=== PATIENT | female | born 1975 | race Caucasian/White ===

== ENCOUNTER → 2017-06-18 | Outpatient (CLI) | payer BC ==
[~2017-06-18] MED LIST: ALPR0.5T9 PO; IBUP-1050 PO; LXP10 PO; MELA1TAB4 PO; TPRSR/25 PO
--- NOTE | 2017-06-21 12:30 | MAMMOGRAPHY REPORT ---
BILATERAL DIGITAL SCREENING MAMMOGRAM TOMOSYNTHESIS WITH CAD: 06/18/2017 CLINICAL HISTORY: Routine screening. Patient has no complaints. TECHNIQUE: Breast tomosynthesis in addition to standard 2D mammography was performed. Current study was also evaluated with a Computer Aided Detection (CAD) system. COMPARISON: Comparison is made to exams dated: 02/06/2016 mammogram, 01/02/2015 mammogram, 01/12/2014 l ocalization, 01/12/2014 specimen, 11/28/2013 ultrasound biopsy, and 11/02/2013 mammogram - [facility]. BREAST COMPOSITION: The tissue of both breasts is heterogeneously dense, which may obscure small mas ses. FINDINGS: No suspicious masses, calcifications, or areas of architectural distortion are noted in ei ther breast. There has been no significant interval change compared to prior exams. There is archite ctural distortion in the left upper outer quadrant at the site of prior surgical excision. A linear scar marker denotes a scar on the left upper outer breast. IMPRESSION: ACR BI-RADS CATEGORY 2: BENIGN There is no mammographic evidence of malignancy. A 1 year screening mammogram is recommended. The pa tient will receive written notification of the results. Approximately 10% of breast cancers are not detected with mammography. A negative mammographic report should not delay biopsy if a clinically suggestive mass is present. Laura Lozano M.D. /:06/18/2017 15:31:58 Zoning Technician: Tanya VELA)(Elina), [facility] letter sent: Normal 1/2 BI-RADS Code: ACR BI-RADS Category 2: Benign
== END | disposition home or self-care (01) ==
LOC: C.MAMM 10:37
PROVIDERS: ATTEND Obstetrics & Gynecology
DX: Z12.31 Encounter for screening mammogram for malignant neoplasm of breast (principal)

== ENCOUNTER → 2017-07-26 | Outpatient (CLI) | payer BC | END | disposition home or self-care (01) | LOC: C.PAPS 14:24 | PROVIDERS: ATTEND Obstetrics & Gynecology | DX: Z01.419 Encounter for gynecological examination (general) (routine) without abnormal findings (principal) ==

== ENCOUNTER → 2017-07-26 | Outpatient (CLI) | payer BC ==
[2017-07-26 14:52] LABS: URINE APPEARANCE CLEAR (CLEAR); URINE BILIRUBIN NEG (NEG); URINE COLOR YELLOW; URINE NITRITE NEG (NEG); URINE PH 6.5 (4.5-7.5); URINE SPECIFIC GRAVITY 1.011 (1.000-1.030); UROBILINOGEN NEG (NEG)
[2017-07-26 15:08] LABS: MANUAL MICROSCOPIC REQUIRED? NO; REVIEW REQ? NO
== END | disposition home or self-care (01) ==
LOC: C.LABSPEC 13:37
PROVIDERS: ATTEND Obstetrics & Gynecology
DX: R30.0 Dysuria (principal)

== ENCOUNTER 2019-06-19 08:38 | Inpatient (IN) ==
--- NOTE | 2019-06-14 14:23 | Anesthesiology Consultation ---
Date of Service June 14, 2019 Assessment & Plan (1) Encounter for pre-operative examination: History of Von Willebrand's disease: discovered during incidental workup 2017 22 abnormal bruising. Patient follows with hematology (Dr. Mcclendon). Per Vickie at surgeon's office, they will be coordinating with hematology if preop DDAVP testing/treatment needed. Chart Review Chart Review: Acceptable Risk for Surgery (pending BMP AM DOS (surgeon- ordered/not done with preop testing)) and Patient NOT seen in Pre Admission Testing History Surgery Operation Date: 06/19/19 10:20 Proposed Procedures p Laparoscopic Incisional Hernia Repair - Stan Coleman MD, FACS Height/Weight Height: 5 ft 1 in Weight: 58.06 kg Allergies Allergy/AdvReac Type Severity Reaction Status Date / Time chlorthalidone AdvReac Unknown HYPOKALEMIA Verified 06/13/19 15:06 Medications Home Medications Medication Instructions Recorded Confirmed Last Taken ibuprofen 400 - 600 mg PO QID PRN 09/20/18 06/13/19 10/09/18 08:00 metoprolol succinate 50 mg PO QPM 09/20/18 06/13/19 10/09/18 22:00 sertraline [Zoloft] 100 mg PO HS 09/20/18 06/13/19 10/09/18 22:00 trazodone 25 mg PO HS PRN 09/20/18 06/13/19 10/09/18 22:00 alprazolam [Xanax] 0.25 mg PO DAILY PRN 06/13/19 06/13/19 Unknown Past Medical History Medical History Anxiety Hx of irritable bowel syndrome Hx of thyroid nodule UNDER SURVEILLANCE Hypertension Kidney stones Valvular disease MILD AI Von Willebrand disease DIAGNOSED ~03/2018 (DISCOVERED INCIDENTALLY 2/2 WORKUP FOR ABNORMAL BRUISING) Past Family History Family History Grandmother (Paternal) Family history of diabetes mellitus Grandmother (Maternal) Family history of diabetes mellitus Past Surgical History Surgical History History of colonoscopy History of cystoscopy WITH STENT History of dilatation and curettage History of herniorrhaphy History of intraocular lens implant History of tonsillectomy History of umbilical hernia repair Hx of breast lump removal LEFT Hx of laparoscopy X 2 Nausea and vomiting after administration of anesthetic agent Status post laparoscopic hysterectomy with open ventral hernia repair: 10/10/18: Grade view 2, MAC#3, ETT 7.5 at [facility] Social History Smoking Status: Current every day smoker tobacco type: cigarettes Smoking cigarettes per day: 5 per day Do You Dip or Chew Tobacco: No Hx Alcohol Use: Yes Alcohol type: beer alcohol intake frequency: a few times a week Hx Substance Use: No substance use type: does not use Testing Laboratory Results 06/14/19 WBC 8.16 H/H 13.9/41.3 PLATELETS 364 Echocardiogram Date: 07/04/18 LVEF 65%. No RWMA. Mild AI.
[~2019-06-19 08:38] MED LIST changes: -ALPR0.5T9 PO; +CEFAZOLIN 2000MG 2,000 MG/15 ML SYR IV SCH; +DESMOPRESSIN ACETATE 17 MCG in SODIUM CHLORIDE 0.9% 50 ML IV SCH; -IBUP-1050 PO; +LACTATED RINGER'S 1,000 ML IV SCH; -LXP10 PO; -MELA1TAB4 PO; -TPRSR/25 PO
[2019-06-19] MEDS ORDERED: SCOPOLAMINE 1.5 MG TDSY ONE (09:31)
[2019-06-19] MEDS ORDERED: ePHEDrine sulfate 50 MG/ML AMP IV PRN (09:34)
[2019-06-19] MEDS ORDERED: ONDANSETRON INJ 2 MG/ML 2 ML VIAL IV PRN ×2 (09:34→13:30)
[2019-06-19] MEDS ORDERED: ATROPINE SULFATE 0.1 MG/ML 10ML SYR IV PRN (09:34)
[2019-06-19] MEDS ORDERED: SCOPOLAMINE 1.5 MG TDSY TD ONE (09:34)
[2019-06-19] MEDS ORDERED: SUCCINYLCHOLINE CHLORIDE 20 MG/ML 10 ML VIAL ONE (09:46)
[2019-06-19] MEDS ORDERED: PROPOFOL IV EMULSION 10 MG/ML 20 ML VIAL IV ONE (09:46)
[2019-06-19] MEDS ORDERED: MIDAZOLAM HCL 1 MG/ML 2ML VIAL ONE (09:46)
[2019-06-19] MEDS ORDERED: fentaNYL citrate 100 MCG/2 ML VIAL ONE ×3 (09:46→11:42)
[2019-06-19] MEDS ORDERED: GLYCOPYRROLATE 0.2 MG/ML VIAL ONE (09:46)
[2019-06-19] MEDS ORDERED: ONDANSETRON INJ 2 MG/ML 2 ML VIAL ONE (09:46)
[2019-06-19] MEDS ORDERED: LIDOCAINE HCL 2% 2 ML VIAL/AMP(20MG/ML) INFIL ONE (09:46)
[2019-06-19] MEDS ORDERED: DEXAMETHASONE SOD INJ 4 MG/ML VIAL ONE (09:46)
[2019-06-19] MEDS ORDERED: PHENYLEPHRINE HCL 10 MG/ML VIAL ONE (09:46)
[2019-06-19] MEDS ORDERED: NEOSTIGMINE METHYLSULFATE 5 MG/5 ML SYR ONE (09:46)
[2019-06-19] MEDS ORDERED: ePHEDrine sulfate 50 MG/ML AMP ONE (09:46)
[2019-06-19] MEDS ORDERED: BUPIVACAINE 0.5 % 5 MG/1 ML MPF 30ML VIAL ONE (10:23)
--- NOTE | 2019-06-19 10:28 | History & Physical Bridge Note ---
Date of Service June 19, 2019 History & Physical Bridge Note I have examined the patient, reviewed the History & Physical and in the interval since the performance of the History & Physical I have noted the following changes of clinical significance: no changes noted
[2019-06-19] MEDS ORDERED: ePHEDrine sulfate 50 MG/ML SYR ONE (11:09)
[2019-06-19] MEDS ORDERED: PHENYLEPHRINE 100MCG/ML 5ML SYR ONE (11:09)
--- NOTE | 2019-06-19 11:28 | Operative Report ---
Post Operative Report Pre & Post Diagnosis Operation Date: 06/19/19 10:20 Pre-Op Diagnosis: Incisional Hernia; Von Willebrand Disease Post-Op Diagnosis: Incisional Hernia; Von Willebrand Disease Procedure Operation Date: 06/19/19 10:20 Actual Procedures p Laparoscopic Incisional Hernia Repair(Not Applicable) - Stan Coleman MD, FACS Surgeon Stan Coleman MD, FACS Main Line Station Engineer Elvin Jovel Estimated Blood Loss 5 Findings Consistent with Post-Op Diagnosis Specimens none Description of Procedure see dictation I attest to the content of the Intraoperative Record and any orders documented therein. Any exceptions are noted below.
[2019-06-19] MEDS ORDERED: ACETAMINOPHEN 1,000 MG/100 ML VIAL IV ONE (11:33)
[2019-06-19] MEDS ORDERED: ACETAMINOPHEN 1000 MG/100 ML IV IV ONE (11:49)
[2019-06-19] MEDS: fentaNYL citrate 100 MCG/2 ML VIAL IV PRN ×10 (11:56→12:48)
--- NOTE | 2019-06-19 11:57 | Operative Report ---
DATE OF OPERATION: 06/19/2019 NAME OF OPERATION: Laparoscopic incisional and ventral hernia repairs. FINDINGS: The patient had 2 defects close together over approximately 5 cm and we used a 15-cm piece of Surgimesh to repair the hernias. STAFF SURGEON: Stan Coleman MD COMMUNITY SUPPORT WORKER: Everett Jovel PA-C ANESTHESIA: General. DESCRIPTION OF PROCEDURE: The patient was brought into the operating room and placed on the operating table in supine position. Her abdomen was prepped and draped in usual fashion. Pneumatic stockings, orogastric tube were placed. My guest services assistant helped with prepping, draping, repair of the hernias, and closure of the wounds. Initially, incision was made in the left upper quadrant using 0.5% plain Marcaine to anesthetize all incisions. Incision was made down to the fascia placing a Veress needle producing pneumoperitoneum, placing an 11-mm port. On visualization, the patient did have omentum and preperitoneal adipose tissue within the 2 defects. Two deep 5-mm ports were placed on the left side and also on the right side. The tissue was reduced from the hernia sacs and then it was apparent that we would need a 15-cm piece of Surgimesh to get a good overlap. The mesh was placed into the abdomen. The polypropylene was toward the fascia, the silicone toward the bowel. It was brought up through the defect using the Prolene suture. It was then tacked in 2 rows, an outer and an inner row of absorbable tacks with good placement. I did mobilize the adipose tissue away from the fascia inferiorly and superiorly prior to placing the mesh. The pneumoperitoneum was reduced. All ports were removed. The fascia in the left upper quadrant closed using interrupted 0 Vicryl suture, skin reapproximated using subcuticular 4-0 Monocryl, Dermabond used for the 5-mm sites, and Steri-Strips for the left upper quadrant site, and 5-0 Prolene for the midline stab incision. I attest to the content of the Intraoperative Record and any orders documented therein. Any exception s are noted below.
--- NOTE | 2019-06-19 12:59 | Anesthesiology Progress Note ---
Date of Service June 19, 2019 Anesthesia Post Procedure Vital Signs Vital Signs: Temp Pulse Pulse Resp BP BP Pulse Ox 06/19/19 12:55 74 16 114/83 99 06/19/19 12:45 79 14 136/91 99 06/19/19 12:35 97.9 F 65 13 125/94 97 06/19/19 12:25 68 13 126/91 98 06/19/19 12:15 76 15 124/97 98 06/19/19 12:05 68 18 133/96 99 06/19/19 11:55 65 18 145/101 H 100 06/19/19 11:47 96.8 F L 73 18 130/95 100 06/19/19 09:05 98.1 F 68 18 154/100 H 98 Pain Intensity Abdomen: Pain Intensity: 8 Transfer of Care Handoff Completed per policy Notes Mental Status: alert / awake / arousable and participated in evaluation Patient Amnestic to Procedure: Yes Nausea / Vomiting: adequately controlled Pain: adequately controlled Airway Patency, RR, SpO2: stable & adequate BP & HR: stable & adequate Hydration State: stable & adequate Anesthetic Complications: no major complications apparent and Pt Satisfied with anesthetic care
[2019-06-19] MEDS ORDERED: TRAZODONE HCL 50 MG TAB PO PRN (13:30)
[2019-06-19] MEDS ORDERED: MoRPHine SULFATE 2 MG/ML CARP IV PRN (13:30)
[2019-06-19] MEDS ORDERED: IBUPROFEN 600 MG TAB PO PRN (13:30)
[2019-06-19] MEDS ORDERED: ACETAMINOPHEN 325 MG TAB PO PRN (13:30)
[2019-06-19] MEDS ORDERED: MoRPHine SULFATE 4 MG/ML 1 ML CARP\\VIAL IV PRN (13:30)
[2019-06-19] MEDS ORDERED: PROMETHAZINE HCL 12.5 MG in SODIUM CHLORIDE 0.9% 50 ML IV PRN (13:30)
[2019-06-19] MEDS ORDERED: PROMETHAZINE HCL 25 MG in SODIUM CHLORIDE 0.9% 50 ML IV PRN (13:30)
[2019-06-19] MEDS ORDERED: HYDROCODONE/ACETAMOPHEN 5/325MG TAB PO PRN ×2 (13:30)
[2019-06-19] MEDS: SODIUM CHLORIDE 0.9% 1000ML 1,000 ML IV SCH (13:50)
[2019-06-19] MEDS: CEFAZOLIN 1000MG 1,000 MG/7.5 ML SYR IV SCH ×2 (14:37→22:02)
[2019-06-19] MEDS: CHECK SCOPOLAMINE PATCH PLACEMENT SCH ×2 (15:35→23:41)
[2019-06-19] MEDS ORDERED: NALOXONE HCL 0.4 MG/1 ML VIAL/CARP IV PRN (15:57)
[2019-06-19] MEDS: HYDROmorphone HCL 0.5MG/ML 50 ML CASSETTE IV PRN (16:42)
[2019-06-19] MEDS: SODIUM CHLORIDE 0.9% 1000ML IV SCH (16:46)
[2019-06-19] MEDS: METOPROLOL SUCC 50MG EXT REL TAB PO SCH (20:16)
[2019-06-19] MEDS: SERTRALINE HCL 100 MG TABLET PO SCH (22:01)
[2019-06-20] MEDS: CEFAZOLIN 1000MG 1,000 MG/7.5 ML SYR IV SCH ×3 (06:26→20:46)
--- NOTE | 2019-06-20 06:59 | Surgery Progress Note ---
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 will likely require 1-2 addnl days in hospital. cont IV atbx. Req str cath- will monitor- may need garcia (str cath for now) try to encourage walking Subjective see a/p Results & Data Vital Signs (Past 12 Hours) Vital Signs Temp Pulse Resp BP Pulse Ox 06/20/19 04:00 36.7 C 62 16 118/77 92 06/20/19 00:47 93 06/20/19 00:45 36.6 C 63 16 120/77 88 L 06/19/19 20:50 36.6 C 71 17 129/82 92 06/19/19 19:49 36.5 C 57 L 18 118/77 92 PG Care Time/CCT Total # of Minutes Spent Total Time Spent with Patient: Total time spent is greater than 50% in coordination of care (as documented) at patient's floor/unit and/or counseling patient:
[2019-06-20 07:49] LABS: Hematocrit (blood only) 32.6 % (37-47); Mean Corpuscular Hgb Conc 33.7 g/dL (32-36); Mean Corpuscular Volume 93.9 fL (80-100); Mean Platelet Volume 9.1 fL (7.4-10.4); Platelet Count 287 K/uL (130-400); RDW Coefficient of Variation 13.3 % (11.5-14.5); RDW Standard Deviation 45.9 fL (36.4-46.3); Red Blood Count 3.47 M/uL (4.2-5.4); White Blood Count 9.59 K/uL (4.8-10.8)
--- NOTE | 2019-06-20 07:58 | Anesthesiology Progress Note ---
Date of Service June 20, 2019 Anesthesia Post Procedure Vital Signs Vital Signs: Temp Pulse Pulse Resp BP BP Pulse Ox 06/20/19 07:18 36.8 C 51 L 18 110/73 94 06/20/19 04:00 36.7 C 62 16 118/77 92 06/20/19 00:47 93 06/20/19 00:45 36.6 C 63 16 120/77 88 L 06/19/19 20:50 36.6 C 71 17 129/82 92 06/19/19 19:49 36.5 C 57 L 18 118/77 92 06/19/19 18:46 59 L 16 120/77 95 06/19/19 17:45 36 C L 61 16 112/75 94 06/19/19 16:16 36.7 C 79 18 124/83 94 06/19/19 15:16 36.6 C 66 18 116/83 96 06/19/19 14:12 75 15 114/80 95 06/19/19 13:56 71 16 117/80 95 06/19/19 13:15 36.6 C 76 15 134/80 94 06/19/19 13:05 74 16 127/85 99 06/19/19 12:55 74 16 114/83 99 06/19/19 12:45 79 14 136/91 99 06/19/19 12:35 36.6 C 65 13 125/94 97 06/19/19 12:25 68 13 126/91 98 06/19/19 12:15 76 15 124/97 98 06/19/19 12:05 68 18 133/96 99 06/19/19 11:55 65 18 145/101 H 100 06/19/19 11:47 36.0 C L 73 18 130/95 100 06/19/19 09:05 36.7 C 68 18 154/100 H 98 Pain Intensity Abdomen: Pain Intensity: 4 Notes Mental Status: alert / awake / arousable Patient Amnestic to Procedure: Yes Nausea / Vomiting: adequately controlled Pain: adequately controlled Airway Patency, RR, SpO2: stable & adequate BP & HR: stable & adequate Hydration State: stable & adequate Anesthetic Complications: no major complications apparent and Pt Satisfied with anesthetic care
[2019-06-20] MEDS: CHECK SCOPOLAMINE PATCH PLACEMENT SCH (09:49)
[2019-06-20] MEDS: SODIUM CHLORIDE 0.9% 1000ML 1,000 ML IV SCH (09:57)
[2019-06-20 10:04] LABS: Prothrombin Time 10.2 Seconds (9.0-12.0)
[2019-06-20] MEDS ORDERED: ALPRAZolam 0.25 MG TABLET PO PRN (10:44)
[2019-06-20] MEDS: HEPARIN SOD 5,000 UNIT/0.5 ML VIAL SQ SCH ×2 (11:47→20:46)
[2019-06-20] MEDS: SODIUM CHLORIDE 0.9% 1000ML IV SCH (15:58)
[2019-06-20] MEDS: SERTRALINE HCL 100 MG TABLET PO SCH (20:47)
[2019-06-20] MEDS: METOPROLOL SUCC 50MG EXT REL TAB PO SCH (20:47)
[2019-06-20] MEDS: ALPRAZolam 0.25 MG TABLET PO PRN (20:47)
[2019-06-20] MEDS: HYDROmorphone HCL 0.5MG/ML 50 ML CASSETTE IV PRN (22:58)
[2019-06-21] MEDS: SODIUM CHLORIDE 0.9% 1000ML 1,000 ML IV SCH (03:50)
[2019-06-21] MEDS: CEFAZOLIN 1000MG 1,000 MG/7.5 ML SYR IV SCH ×3 (06:08→21:43)
[2019-06-21] MEDS ORDERED: OXYCODONE/ACETAMINOPHEN 5mg/325mg TAB PO PRN (06:27)
[2019-06-21] MEDS ORDERED: HYDROmorphone INJ 0.5 MG/0.5 ML SYR IV PRN (06:27)
[2019-06-21] MEDS ORDERED: HYDROmorphone HCL 0.5MG/ML 50 ML CASSETTE IV PRN (06:28)
[2019-06-21] MEDS ORDERED: FUROSEMIDE 20 MG in SYRINGE 0 ML IV STA (06:29)
--- NOTE | 2019-06-21 06:30 | Surgery Progress Note ---
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
--- NOTE | 2019-06-21 06:33 | XRay Report ---
XR chest 1V portable HISTORY: 44 years-old Female low O2 sats acute hypoxia COMPARISON: CT abdomen and pelvis 05/26/2019 TECHNIQUE: Portable AP view of the chest FINDINGS: Cardiomediastinal and hilar silhouettes are within normal limits. Linear subsegmental left basilar op acities suggestive of atelectasis. There is blunting of the costophrenic angles. Alveolar opacities a re noted about the right lung base. No pneumothorax, or overt pulmonary edema. Bones appear grossly i ntact. IMPRESSION: 1. Right basilar opacities are suspicious for pneumonia in the appropriate clinical setting. 2. Suggestion of trace pleural effusions. 3. Subsegmental left basilar opacities favor atelectasis. The above report was generated using voice recognition software. It may contain grammatical, syntax o r spelling errors. Electronically signed by: Jett Olvera M.D. 06/21/2019 6:32 AM
[2019-06-21 07:24] LABS: Alanine Aminotransferase 14 U/L (12-78); Aspartate Aminotransferase 12 U/L (15-37); BUN Creatinine Ratio 8.9 (10-20); Bilirubin Direct < 0.1 mg/dl (0-0.2); Blood Urea Nitrogen 5 mg/dl (7-18); Calcium 8.3 mg/dl (8.5-10.1); Carbon Dioxide 27 mmol/L (21-32); Chloride 106 mmol/L (98-107); Creatinine Clr Calc Pharmacy 96.4 ml/min; Est GFR (African American) 126.9; Est GFR (Non-African American) 109.5; Glucose 94 mg/dl (70-99); Potassium 3.4 mmol/L (3.5-5.1); Sodium 138 mmol/L (136-145)
[2019-06-21 07:27] LABS: Albumin Globulin Ratio 1.1 (0.9-2); Alkaline Phosphatase 69 U/L (45-117); Bilirubin,Total 0.3 mg/dl (0.2-1); Globulin 2.8 gm/dl (2.5-4.0); Phosphorus 2.9 mg/dl (2.5-4.9); Total Protein 5.8 gm/dl (6.4-8.2)
[2019-06-21] MEDS: MAGNESIUM HYDROXIDE SUSP 30 ML UDC PO SCH ×2 (08:51→18:21)
[2019-06-21] MEDS: DOCUSATE SODIUM/SENNA 50/8.6MG TAB PO SCH ×2 (08:51→18:21)
[2019-06-21] MEDS: HEPARIN SOD 5,000 UNIT/0.5 ML VIAL SQ SCH ×2 (08:51→21:31)
[2019-06-21] MEDS: POTASSIUM CHLORIDE 20 MEQ TABCR PO SCH ×2 (09:06→21:32)
--- NOTE | 2019-06-21 13:35 | XRay Report ---
XR chest 2V routine HISTORY: 44 years-old Female hypoxia acute hypoxia COMPARISON: Chest radiograph 06/21/2019 TECHNIQUE: PA and lateral views of the chest FINDINGS: Cardiomediastinal and hilar silhouettes are unchanged. Blunting of the costophrenic angles suggests t race effusions. Minimal subsegmental left basilar atelectasis. Unchanged right basilar densities. No overt pulmonary edema or pneumothorax. Bones appear grossly intact. IMPRESSION: 1. Unchanged right basilar opacities suggestive of atelectasis or pneumonitis. Correlate clinically. 2. Minimal subsegmental left basilar atelectasis. 3. Probable trace pleural effusions. The above report was generated using voice recognition software. It may contain grammatical, syntax o r spelling errors. Electronically signed by: Jett Olvera M.D. 06/21/2019 1:33 PM
[2019-06-21] MEDS: OXYCODONE/ACETAMINOPHEN 5mg/325mg TAB PO PRN ×3 (14:04→21:33)
[2019-06-21] MEDS: SODIUM CHLORIDE 0.9% 1000ML IV SCH (16:14)
--- NOTE | 2019-06-21 21:22 | Internal Medicine Consult Note ---
Date of Consultation June 21, 2019 Assessment & Plan (1) Hypoxia: Likely secondary to atelectasis Patient has bibasilar opacities on x-rays. Clinically patient does not appear to be in CHF, nor does she appear to have an infective process. I ambulated patient around the halls (2 laps) and she did not drop below 90% saturation on room air. She appears to be improving. RECOMMENDED TO CONTINUE TO USE INCENTIVE SPIROMETRY. RECOMMENED REPEAT CHEST X-RAY IN 4-6 WEEK to reassess bibasilar opacities. Will defer to PCP. (2) Hypertension: Appears controlled. Will continue home regimen (3) Anxiety: Appeas stable. will monitor. DVT proph: as per primary service. Spent 35 minutes in management of patient. History of Present Illness Reason for Consultation: Hypoxia Requesting Physician: Aleksandr Pitts MD Attending Physician: Stan Coleman MD, [facility] History of Present Illness This is a pleasant 44 yo female with PMH of anxiety and hypertension. The consult was called as patient developed hypoxia overnight. She reports it has been difficult to take full deep breaths. However, she does feel better this afternoon. She denies a cough, fever, chills, nausea, vomiting. She does report history of smoking. She would smoke a pack a day at most but would mostly average a half a pack of less. Lately, she states she has been smoking about a pack a day as she is going trhough a divorce and this has caused her stress. Currently, she reports she has been ambulating the halls and is breathing better. ROS is below. Allergies Allergy/AdvReac Type Severity Reaction Status Date / Time chlorthalidone AdvReac Intermediate HYPOKALEMIA Verified 06/19/19 08:59 Home Medications Home Medications Medication Instructions Recorded Confirmed Type ibuprofen 400 - 600 mg PO QID PRN 09/20/18 06/19/19 History metoprolol succinate 50 mg PO QPM 09/20/18 06/19/19 History sertraline [Zoloft] 100 mg PO HS 09/20/18 06/19/19 History trazodone 25 mg PO HS PRN 09/20/18 06/19/19 History alprazolam [Xanax] 0.25 mg PO DAILY PRN 06/13/19 06/19/19 History cephalexin [Keflex] 500 mg PO TID #15 cap 06/20/19 Rx Patient History Medical History Anxiety Hx of irritable bowel syndrome Hx of thyroid nodule UNDER SURVEILLANCE Hypertension Kidney stones Valvular disease MILD AI Von Willebrand disease DIAGNOSED ~03/2018 (DISCOVERED INCIDENTALLY 2/2 WORKUP FOR ABNORMAL BRUISING) Surgical History History of colonoscopy History of incisional hernia repair Laparoscopic Incisional Hernia Repair Dr. Coleman 06-19-19 History of intraocular lens implant History of umbilical hernia repair Nausea and vomiting after administration of anesthetic agent Status post laparoscopic hysterectomy with open ventral hernia repair: 10/10/18: Grade view 2, MAC#3, ETT 7.5 at [facility] History of cystoscopy WITH STENT History of dilatation and curettage History of herniorrhaphy History of tonsillectomy Hx of breast lump removal LEFT Hx of laparoscopy X 2 Family History Grandmother (Paternal) Family history of diabetes mellitus Grandmother (Maternal) Family history of diabetes mellitus Social History Preferred Language: Romanian Communication Ability: Effective Visual Impairment: No Limitations Word Processor Operator Required: No Beliefs That Will Affect Care: None Current Living Situation: Family Current Living Situation Comment: lives w/ children Other Information That Helps Us Care for You: No Feels Safe at Home: Yes Safety Concerns: Feels Safe At This Time Smoking Status: Current every day smoker Tobacco Type: cigarettes ; Cigarettes Per Day: 5 per day ; Do You Dip or Chew Tobacco: No ; Second Hand Exposure: No ; Tobacco Cessation Education Requested by Patient: No Hx Alcohol Use: Yes Alcohol type: beer Hx Substance Use: No Review of Systems Constitutional: no fever, no sweats and no malaise Eyes: no blind spots and no diplopia Ear, Nose, Mouth, Throat: no ear pain and no tinnitus Respiratory: + dyspnea; no cough and no change in sputum Cardiovascular: no chest pain with activity Gastrointestinal: no bloating Integumentary: no rash Neurologic: no falls Endocrine: no polydipsia Hematologic / Lymphatic: no coagulopathy Physical Exam Constitutional: WD/WN, vitals as above well developed Eyes: PERRL, conjunctivae normal, anicteric sclerae ENMT: external ear and nose normal, oropharynx normal Neck: trachea midline, no thyromegaly Respiratory: normal respiratory effort; no respiratory distress, does not use accessory muscles and no cough Auscultation: lungs clear to auscultation bilaterally (except for bibasilar rales) Cardiovascular: RRR, no murmur, no edema Gastrointestinal (Abdomen): normal bowel sounds, soft, nontender, no hepatosplenomegaly Musculoskeletal: no cyanosis or clubbing, extremities motor strength 5/5 Skin: no rashes, warm and dry Psychiatric: A+Ox3, euthymic affect Results & Data Vital Signs (Past 12 Hours) Vital Signs Temp Pulse Pulse Resp BP Pulse Ox 06/21/19 15:25 36.9 C 84 16 121/84 95 06/21/19 11:55 37.1 C 76 16 136/88 95 PG Care Time/CCT Total # of Minutes Spent Total Time Spent with Patient: Total time spent is greater than 50% in coordination of care (as documented) at patient's floor/unit and/or counseling patient:
[2019-06-21] MEDS: ALPRAZolam 0.25 MG TABLET PO PRN (21:32)
[2019-06-21] MEDS: SERTRALINE HCL 100 MG TABLET PO SCH (21:33)
[2019-06-21] MEDS: METOPROLOL SUCC 50MG EXT REL TAB PO SCH (21:33)
[2019-06-22] MEDS: OXYCODONE/ACETAMINOPHEN 5mg/325mg TAB PO PRN ×2 (02:29→09:54)
[2019-06-22] MEDS: CEFAZOLIN 1000MG 1,000 MG/7.5 ML SYR IV SCH (06:04)
[2019-06-22 06:56] LABS: Prothrombin Time 9.8 Seconds (9.0-12.0)
--- NOTE | 2019-06-22 06:57 | Surgery Progress Note ---
Date of Service June 22, 2019 Assessment & Plan (1) S/P hernia repair: pt much improved- will d/c home if ok with medical team- O2 sats improved for check in office next week Results & Data Vital Signs (Past 12 Hours) Vital Signs Temp Pulse Resp BP Pulse Ox 06/22/19 02:43 92 06/21/19 23:08 37.0 C 64 18 133/84 92 PG Care Time/CCT Total # of Minutes Spent Total Time Spent with Patient: Total time spent is greater than 50% in coordination of care (as documented) at patient's floor/unit and/or counseling patient:
[2019-06-22] MEDS: POTASSIUM CHLORIDE 20 MEQ TABCR PO SCH (08:55)
[2019-06-22] MEDS: HEPARIN SOD 5,000 UNIT/0.5 ML VIAL SQ SCH (08:56)
[2019-06-22] MEDS: DOCUSATE SODIUM/SENNA 50/8.6MG TAB PO SCH (08:56)
[2019-06-22] MEDS: MAGNESIUM HYDROXIDE SUSP 30 ML UDC PO SCH (08:56)
--- NOTE | 2019-06-22 11:32 | Hospitalist Progress Note ---
Date of Service June 22, 2019 Assessment & Plan (1) Hypoxia: Acute hypoxic respiratory failure with right lower lung density Likely secondary to atelectasis Patient has bibasilar opacities on x-rays more on the right After ambulation and use of incentive spirometry , her SOB and hypoxia resolved currently normal O2 sat on room air instructed and trained incentive spirometry instructed to repeat CXR in 6-8 weeks Ok to DC from medical prospective 44 years old female s/p 2 hernias repair with Mesh instructed to avoid constipation / use stool softners (2) Hypertension: well controlled. continue home regimen (3) Anxiety: stable. no new recs Spent 15 minutes in management of patient. Subjective post surgical SOB see a/p Review of Systems Respiratory: no cough, no chest congestion, no change in sputum, no dyspnea, no hemoptysis and no wheezing Physical Exam Constitutional: WD/WN, vitals as above well developed Eyes: PERRL, conjunctivae normal, anicteric sclerae Neck: trachea midline, no thyromegaly normal visual inspection Respiratory: normal respiratory effort; no respiratory distress, does not use accessory muscles and no cough Auscultation: lungs clear to auscultation bilaterally (except for bibasilar rales) Cardiovascular: RRR, no murmur, no edema Rate/Rhythm: regular rate and regular rhythm Gastrointestinal (Abdomen): normal bowel sounds, soft, nontender, no hepatosplenomegaly Musculoskeletal: no cyanosis or clubbing, extremities motor strength 5/5 Skin: no rashes, warm and dry Psychiatric: A+Ox3, euthymic affect Results & Data Vital Signs (Past 12 Hours) Vital Signs Temp Pulse Pulse Resp BP BP Pulse Ox 06/22/19 10:38 36.7 C 64 64 16 128/79 121/84 94 06/22/19 07:17 36.7 C 64 16 128/79 94 06/22/19 02:43 92 PG Care Time/CCT Total # of Minutes Spent Total Time Spent with Patient: Total time spent is greater than 50% in coordination of care (as documented) at patient's floor/unit and/or counseling patient:
--- NOTE | 2019-06-22 15:11 | Discharge Summary ---
PRINCIPAL DIAGNOSIS: Incisional hernia, ventral hernia. PROCEDURES: The patient underwent laparoscopic incisional and ventral hernia repairs. OTHER DIAGNOSES: Hypoxia. HISTORY OF PRESENT ILLNESS: The patient is a 44-year-old female with recurrent incisional hernia and also ventral hernia on CT scan for definitive surgery. She was brought into the hospital on 06/19/2019 where she underwent laparoscopic incisional and ventral hernia repairs, which she tolerated very well. 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 Gradually she diuresed and progressed and was felt stable for discharge home on 06/22/2019 to be followed in the surgical clinic within 1 week. I also had the medical hospitalist team see the patient during her hospitalization.
== END 2019-06-22 12:15 | disposition home or self-care (01) | DRG 354 ==
LOC: 3N 08:38 → ASU 08:38